=== PATIENT | female | born 1935 | race Hispanic/Latino ===

== ENCOUNTER → 2019-11-23 | Outpatient (CLI) | payer MEDICARE | END | disposition home or self-care (01) | LOC: SHCH 12:00 | PROVIDERS: ATTEND Internal Medicine Cardiovascular Disease | DX: R22.43 Localized swelling, mass and lump, lower limb, bilateral (principal); I10 Essential (primary) hypertension | CPT/HCPCS: 93970 ==

== ENCOUNTER → 2020-03-22 | Outpatient (CLI) | payer MEDICARE ==
--- NOTE | 2020-03-22 11:00 | NUR ---
MBSS COMPLETED. NON-TRANSIENT PENETRATION WITH THIN AND PUREED AT NEUTRAL HEAD POSITION. RECOMMEND REGULAR TEXTURE, THIN LIQUIDS , PILLS WHOLE WITH LIQUIDS. RECOMMENDATIONS: 1. CHIN TUCK DURING SWALLOW FOR ALL TEXTURES DIRECTOR ADVANCED ATTEMPTED TO CALL DAUGHTER WITH NO ANSWER AT THIS TIME. DIRECTOR ADVANCED PROVIDED Pt WITH RESULTS AND RECOMMENDATIONS VIA VERBAL AND WRITTEN MODALITY. DIRECTOR ADVANCED PROVIDED PHONE NUMBER TO BE CALLED IN CASE OF QUESTIONS OR CONCERNS. ALL QUESTIONS ANSWERED AT THE TIME OF THE MBSS. Addendum: 03/22/20 at 1632 by SHAY ORLANDO [facility] Amended: Links added.
== END | disposition home or self-care (01) ==
LOC: RAH 10:49
PROVIDERS: ATTEND Internal Medicine
DX: R13.13 Dysphagia, pharyngeal phase (principal)
CPT/HCPCS: 74230; 92611

== ENCOUNTER → 2020-04-01 | Outpatient (CLI) | payer MEDICARE | END | disposition home or self-care (01) | LOC: SHCH 11:12 | PROVIDERS: ATTEND Internal Medicine Cardiovascular Disease | DX: I08.1 Rheumatic disorders of both mitral and tricuspid valves (principal); I48.0 Paroxysmal atrial fibrillation; I31.3 Pericardial effusion (noninflammatory) | CPT/HCPCS: 93306; 93356 ==